=== PATIENT | female | born 1970 | race Caucasian/White ===

== ENCOUNTER → 2022-11-07 13:17 | Outpatient (CLI) | payer OTHER, SELFPAY ==
--- NOTE | 2022-11-07 | DI.US.S_ITS ---
PROCEDURE: US RENAL COMPLETE INDICATIONS: MULTIPLE RENAL CYSTS TECHNIQUE: Real-time scanning was performed of the kidneys and bladder, with image documentation. COMPARISON: None. FINDINGS: Kidneys: Kidneys are normal in size. Right kidney measures 10.6 cm long; left kidney measures 11.5 cm long. Right renal cortical thickness is 1.4 cm; left renal cortical thickness is 1.8 cm. Renal cortical echotexture is normal. No hydronephrosis or nephrolithiasis. Question a 1.6 x 1.1 x 1.7 cm cyst in the superior medial left kidney. No suspicious solid mass lesions. Bladder: Pre-void bladder volume is 552 mL. Post-void residual is 5 mL. Pre-void images demonstrate no intraluminal masses or stones. On pre-void images, both ureteral jets are noted with color Doppler interrogation. (Of note, ureteral jets may not be detectable in up to 25% of cases due to insufficient differences in specific gravity between ureteral and bladder urine). Miscellaneous: No free pelvic fluid. IMPRESSION: 1. Kidneys are normal in size and echotexture. 2. There is a 1.6 x 1.1 x 1.7 cm cyst in the superior medial aspect of the left kidney. No other renal cysts are seen. Comparison to prior examinations, if available, would be helpful. Dictated by: Nighat Palma M.D. on 11/07/2022 at 17:18 Approved by: Nighat Palma M.D. on 11/07/2022 at 17:22
--- NOTE | 2022-11-07 | DI.RAD.S_ITS ---
PROCEDURE: XR CHEST 2V INDICATIONS: PERSISTENT DRY COUGH TECHNIQUE: 2 views of the chest were acquired. COMPARISON: None. FINDINGS: Surgical changes and devices: None. Lungs and pleura: Lungs are clear. No pleural effusions or pneumothorax. Mediastinum: Mediastinal contours are normal. Heart size is normal. Bones and chest wall: No suspicious bony abnormalities. Soft tissues appear unremarkable. IMPRESSION: No acute cardiopulmonary abnormality. Dictated by: Vinayak Ann M.D. on 11/07/2022 at 14:42 Approved by: Vinayak Ann M.D. on 11/07/2022 at 14:43
== END ==
PROVIDERS: PCP Physician Assistant; Referring Provider Physician Assistant; Visit Provider Physician Assistant
DX: N28.1 Cyst of kidney, acquired (principal); R05.9 Cough, unspecified
CPT/HCPCS: 71046; 76770

== ENCOUNTER → 2023-01-18 11:57 | Outpatient (CLI) | payer OTHER, SELFPAY ==
--- NOTE | 2023-01-18 | DI.CT.S_ITS ---
PROCEDURE: CT SOFT TISSUE NECK W CON INDICATIONS: Chronic cough, pharyngeal dysphagia TECHNIQUE: After the administration of intravenous contrast, 3.0 mm axial sections acquired from the sella to the aortic arch. Additional oblique axial 3.0 mm sections acquired through the pharynx. 3 mm thick coronal and sagittal reformats were generated. For radiation dose reduction, the following was used: automated exposure control. COMPARISON: None. FINDINGS: Image quality: Excellent. Lymph nodes: No enlarged lymph nodes seen throughout the neck. Vessels: Visualized vasculature appears patent. Neck spaces: The oropharynx, nasopharynx, and pharynx demonstrate no mucosal lesions. The vocal cords, false vocal cords, pyriform sinuses, epiglottis, vallecula, and tongue base all appear normal. Extramucosal spaces appear unremarkable. Glands: The parotid and submandibular glands appear normal. Thyroid gland demonstrates no significant abnormality. Miscellaneous: Visualized brain and orbits appear normal. Lung apices appear clear. Superficial soft tissues appear normal. Bones: No suspicious bony lesions. Visualized sinuses and mastoids appear unremarkable. Moderate rightward nasal septal deviation can be seen. Focal [id number] degenerative change can be seen involving the C4-C5 level. IMPRESSION: No mucosal masses are seen. A cause of cough is not seen. The visualized lung apices are clear. Dictated by: Oswaldo Flanagan M.D. on 01/18/2023 at 17:47 Approved by: Oswaldo Flanagan M.D. on 01/18/2023 at 17:49
== END ==
PROVIDERS: PCP Physician Assistant; Referring Provider Otolaryngology; Visit Provider Otolaryngology
DX: J39.2 Other diseases of pharynx (principal); R05.3 Chronic cough; R13.13 Dysphagia, pharyngeal phase; R49.0 Dysphonia; J34.2 Deviated nasal septum; M47.812 Spondylosis without myelopathy or radiculopathy, cervical region
CPT/HCPCS: 70491; Q9967

== ENCOUNTER → 2023-11-15 16:49 | Outpatient (CLI) | payer OTHER, SELFPAY ==
--- NOTE | 2023-11-15 | DI.US.S_ITS ---
PROCEDURE: US RENAL COMPLETE INDICATIONS: RENAL CYSTS TECHNIQUE: Real-time scanning was performed of the kidneys and bladder, with image documentation. COMPARISON: [facility], , US RENAL COMPLETE, 11/07/2022, 13:28. FINDINGS: Kidneys: Kidneys are normal in size. Right kidney measures 10.7 cm long; left kidney measures 12.1 cm long. Right renal cortical thickness is 1.1 cm; left renal cortical thickness is 1.0 cm. Renal cortical echotexture is normal. No hydronephrosis or nephrolithiasis. No suspicious solid mass lesions. Left superior pole cyst measures 1.4 x 1.8 x 1.8 cm (previously 1.1 x 1.6 x 1.6 cm). There is a punctate thin focal acute is seen within the wall. No thick septations or internal vascularity are seen. Simple left parapelvic renal cyst. Bladder: Pre-void bladder volume is 62 mL. Post-void residual is 1 mL. Pre-void images demonstrate no intraluminal masses or stones. On pre-void images, unilateral left ureteral jets are noted with color Doppler interrogation. (Of note, ureteral jets may not be detectable in up to 25% of cases due to insufficient differences in specific gravity between ureteral and bladder urine). Miscellaneous: No free pelvic fluid. IMPRESSION: Left superior pole renal cyst has minimally increased in size, now 1.8 cm. No hydronephrosis or nephrolithiasis. Approved by: Bryce Humphrey M.D. on 11/16/2023 at 21:40
== END ==
PROVIDERS: PCP Physician Assistant; Referring Provider Physician Assistant; Visit Provider Physician Assistant
DX: N28.1 Cyst of kidney, acquired (principal); Z87.448 Personal history of other diseases of urinary system
CPT/HCPCS: 76770

== ENCOUNTER → 2023-12-26 14:07 | Outpatient (CLI) | payer OTHER, SELFPAY ==
[2023-12-26 14:59] LABS: Erythrocyte Sedimentation Rate 8 MM/HR (0-20)
[2023-12-26 16:40] LABS: Ferritin 27 ng/mL (11-264)
== END ==
PROVIDERS: PCP Physician Assistant; Referring Provider Physician Assistant Medical; Visit Provider Physician Assistant Medical
DX: L65.9 Nonscarring hair loss, unspecified (principal); L65.0 Telogen effluvium
CPT/HCPCS: 36415; 82728; 84443; 85651

== ENCOUNTER → 2024-06-05 10:58 | Outpatient (CLI) | payer OTHER, SELFPAY ==
[2024-06-05 12:31] LABS: T4 Total Thyroxine 7.31 ug/dL (5.5-11.0)
[2024-06-05 12:50] LABS: Ferritin 77 ng/mL (11-264)
[2024-06-05 13:11] LABS: Erythrocyte Sedimentation Rate 9 MM/HR (0-20)
== END ==
LOC: LAB 10:59
PROVIDERS: PCP Physician Assistant; Referring Provider Physician Assistant Medical; Visit Provider Physician Assistant Medical
DX: L65.9 Nonscarring hair loss, unspecified (principal)
CPT/HCPCS: 36415; 82728; 84436; 85651

== ENCOUNTER → 2024-08-11 16:17 | Outpatient (CLI) | payer OTHER, SELFPAY ==
--- NOTE | 2024-08-11 16:21 | DI.RAD.S_ITS ---
PROCEDURE: XR SHOULDER RT MIN 2V INDICATIONS: R SHOULDER PAIN TECHNIQUE: 3 views of the shoulder were acquired. COMPARISON: None. FINDINGS: Bones: No fractures or dislocations. No suspicious bony lesions. Visualized ribs appear intact. Soft tissues: No suspicious soft tissue calcifications. IMPRESSION: No acute bony abnormality. No significant degenerative change. Dictated by: Ayo Ralph M.D. on 08/12/2024 at 16:34 Approved by: Ayo Ralph M.D. on 08/12/2024 at 16:34
== END ==
PROVIDERS: PCP Physician Assistant; Referring Provider Physician Assistant; Visit Provider Physician Assistant
DX: M25.511 Pain in right shoulder (principal); G89.29 Other chronic pain
CPT/HCPCS: 73030

== ENCOUNTER → 2025-04-27 12:02 | Outpatient (CLI) | payer OTHER, SELFPAY ==
--- NOTE | 2025-04-27 12:03 | DI.US.S_ITS ---
PROCEDURE: US RENAL COMPLETE
== END ==
LOC: US 12:03
PROVIDERS: PCP Physician Assistant; Referring Provider Physician Assistant; Visit Provider Physician Assistant
DX: N28.1 Cyst of kidney, acquired (principal); N28.89 Other specified disorders of kidney and ureter; R31.29 Other microscopic hematuria; R30.0 Dysuria
CPT/HCPCS: 76770

== ENCOUNTER → 2025-05-08 09:43 | Outpatient (CLI) | payer OTHER, SELFPAY ==
--- NOTE | 2025-05-08 09:46 | DI.MRI.S_ITS ---
PROCEDURE: MR ABDOMEN WO/W CON INDICATIONS: left renal cyst TECHNIQUE: Coronal HASTE through abdomen and pelvis; axial 2D FLASH in- and [id number] (with and without fat saturation), and breath-hold T2 FSE from the hepatic dome to the bottom of the kidneys. Coronal HASTE MR urogram of kidneys and bladder. Dynamic coronal VIBE during IV gadolinium administration; postgadolinium axial VIBE or 2D FLASH with fat saturation from the hepatic dome through the kidneys. COMPARISON: None. FINDINGS: Image quality: Diagnostic. Kidneys and Ureters: There is a partially exophytic cystic lesion on the superior pole of the left kidney measuring 2.4 x 1.8 centimeter. The cyst contains a thin internal septation and a fluid fluid level. OTHER: Lung bases: Unremarkable. Liver: No solid mass. Benign 7 millimeter cyst in segment 2/3. Gallbladder: No gallstones or wall thickening. Biliary ducts: No biliary dilation. Pancreas: No ductal dilation. Spleen: Size is within normal limits. Adrenal Glands: No adrenal nodules. Stomach and Bowel: Normal colonic caliber, without significant wall thickening. Peritoneum: No abnormal intraperitoneal fluid. No free air. Ventral Wall: No hernia. Abdominal Nodes: No retroperitoneal or mesenteric adenopathy by size criteria. Vessels: Aorta and inferior vena cava are normal in size. Bones: No aggressive osseous abnormality. IMPRESSION: Less conspicuous appearance of the cystic lesion on the superior pole of the left kidney compared with recent ultrasound. The lesion contains a fluid fluid level, suggestive of hemorrhage products, and contains a thin internal septation. This would qualify as a Bosniak 2 cyst, typically not requiring follow-up. However, given the features on comparison ultrasound, consider six-month follow-up with ultrasound to ensure resolution of the complex features. Dictated by: Ayo Ralph M.D. on 05/08/2025 at 11:27 Approved by: Ayo Ralph M.D. on 05/08/2025 at 11:31
== END ==
PROVIDERS: PCP Physician Assistant; Referring Provider Physician Assistant; Visit Provider Physician Assistant
DX: N28.1 Cyst of kidney, acquired (principal); R31.29 Other microscopic hematuria; K76.89 Other specified diseases of liver
CPT/HCPCS: 74183; A9579